=== PATIENT | female | born 1970 | race Caucasian/White ===

== ENCOUNTER 2024-04-21 22:16 | Emergency (ER) | payer BC ==
[~2024-04-21] VITALS: Ht 152.4 cm; Wt 68.0 kg
[2024-04-22] MEDS: ONDANSETRON 4MG INJ IVP ONE (00:24)
[2024-04-22] MEDS: MORPHINE 2 MG SYG IVP ONE (00:24)
[2024-04-22] MEDS: KETOROLAC 30MG VIAL (30MG/ML) IVP ONE (00:24)
[2024-04-22 00:39] VITALS: BP 112/57; PULSE 80; RESP 14; O2SAT 98
[2024-04-22] MEDS ORDERED: KETO10TA2 PO (00:49)
[2024-04-22] MEDS ORDERED: DICL20GE TP (00:51)
== END 2024-04-22 01:04 | disposition home or self-care (01) ==
LOC: EDH 22:16
DX: M75.31 Calcific tendinitis of right shoulder (principal)
CPT/HCPCS: 99284; 73030; 96374; 96375; J2270; J2405; J1885